=== PATIENT | female | born 1965 | race African-American/Black ===

== ENCOUNTER 2019-10-08 15:04 | Emergency (ER) | payer OTHER ==
[~2019-10-08] VITALS: Ht 149.9 cm; Wt 81.7 kg
[2019-10-08 15:36] LABS: ABSOLUTE NEUTROPHILS 6.5 thou/uL (1.4-8.2); BASOPHILS 1.1 % (0.0-2.0); EOSINOPHILS 1.8 % (0.0-3.0); HEMATOCRIT 42.1 % (37.0-47.0); HEMOGLOBIN 14.6 gm/dL (12.0-15.0); LYMPHOCYTES 27.4 % (24.0-44.0); MCH 30.1 pg (26.0-34.0); MCHC 34.5 g/dL (28.0-37.0); MCV 87.2 fL (80.0-100.0); MONOCYTES 6.1 % (1.0-8.0); PLATELET COUNT 257 thou/uL (150-400); POLYS 63.6 % (36.0-66.0); RBC 4.83 mil/uL (4.20-5.00); WBC 10.2 thou/uL (4.0-11.0)
[2019-10-08 15:42] LABS: CALCIUM 8.7 mg/dL (8.5-10.1); CREATININE 0.9 mg/dL (0.6-1.0)
[2019-10-08 15:48] LABS: ALBUMIN 3.9 g/dL (3.4-5.0); TOTAL BILIRUBIN 0.4 mg/dL (0.2-1.0)
[2019-10-08 15:54] VITALS: BP 116/66
[2019-10-08] MEDS ORDERED: PROMETH-CODEIN 65 ML PO (16:06)
[2019-10-08] MEDS ORDERED: PREDNISONE 20 M20 MG PO (16:06)
== END 2019-10-08 16:40 | disposition home or self-care (01) ==
LOC: ER 15:04
PROVIDERS: Physician Assistant
DX: J40 Bronchitis, not specified as acute or chronic (principal); Z03.818 Encounter for observation for suspected exposure to other biological agents ruled out